=== PATIENT | female | born 1995 | race Hispanic/Latino ===

== ENCOUNTER 2021-09-30 08:20 | Outpatient (CLI) | payer OTHER | END 2021-09-30 08:21 | disposition home or self-care (01) | LOC: BICULT 08:20 | PROVIDERS: ATTEND Family Medicine | DX: N93.9 Abnormal uterine and vaginal bleeding, unspecified (principal); R93.89 Abnormal findings on diagnostic imaging of other specified body structures | CPT/HCPCS: 76856; 93976 ==

== ENCOUNTER 2022-02-12 12:23 | Outpatient (CLI) | payer OTHER ==
[~2022-02-12 12:23] MED LIST: Magnevist 469MG/ML 20 ML VIAL ONE
== END 2022-02-12 12:24 | disposition home or self-care (01) ==
LOC: BICMRI 12:23
PROVIDERS: ATTEND Nurse Practitioner Family
DX: N93.9 Abnormal uterine and vaginal bleeding, unspecified (principal)
CPT/HCPCS: 72197; A9579